=== PATIENT | female | born 1945 | race Caucasian/White ===

== ENCOUNTER 2025-08-03 14:00 | Outpatient (AMB) | payer MEDICARE, MEDICAID, SELFPAY ==
--- NOTE | 2025-08-03 14:02 | MHC.OFFVIS ---
Intake Visit Reasons: Sonner appt/ recent sz Accompanied by: Family/Other Allergies lisinopril Allergy (Unknown, Verified 08/03/25 14:09) Unknown Medication List - Last Reconciled 08/03/25 by Fernanda Ortez CNP amantadine HCl 100 mg PO BID amlodipine 2.5 mg PO DAILY aspirin 81 mg PO DAILY atorvastatin 40 mg PO DAILY blood sugar diagnostic (FreeStyle Lite Strips) As directed diazepam 10 mg MD lancets (FreeStyle Lancets) As directed metformin ER 500 mg PO DAILY metoprolol tartrate 75 mg PO BID polyethylene glycol 3350 (ClearLax) 17 grams PO DAILY PRN trazodone 25 mg PO BEDTIME HPI Comments Details: About 3 weeks ago, she had an episode of shaking and moving in arms that lasted over 5 minutes. She was alert and responsive during the episode. No tongue bite or incontinence. She was not more tired or confused afterward. She went back to her usual self immediately after the episode ended. EMS was called, but she did not go to hospital. She saw her PCP who ordered MRI which was scheduled for August and labs which she has not had done yet. No further episodes. Some days she was more alert than others. Occasionally recognizes family, but not always, and?does not relate names to people. Not expressing needs and not talking much, will say 2-3 words.?She needs total care. She requires feeding and some foods need to be pureed,?no choking. Appetite has decreased some. Sleep was okay. Mood and behavior was okay. Blood pressure controlled.?Not walking since COVID in 2019. Doing ROM exercises 2x/day.? She had a stroke with hemiparesis in 2009 [place] and made good recovery. She had mild dementia till October 2019 when she had this stroke or cerebral hemorrhage for which she was hospitalized at [facility]. She lost her speech and had right hemiplegia. 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 She had made significant recovery in her right hemiparalysis and was able to walk with a walker and supervision. She was able to follow a few simple commands and occasionally express herself with single words and sometimes short sentences. Most of the time she is lethargic and apathetic. She's not had any seizures. She is not incontinent of her bladder or bowel. Her blood pressure has been under control. Her sugar had gone up and A1c is high. She says single words occasionally. Physical Exam Const Other: General Appearance:? normal, in no acute distress. Heart:? S1, S2 normal, no murmurs. Lungs:? clear anteriorly and posteriorly. Musculoskeletal:? normal. Extremities:? no edema. Psych:? alert. Neuro Other: Abnormal Neurological Findings:?In wheelchair, unable to walk. Not verbalizing and does not follow commands. Eyes are open. She has a visual field deficit especially seems to have some neglect on the right. She can move both upper extremities with some weakness in the right upper extremity. Right lower extremity seems a little bit weaker. There is no increase in tone or significant hyperreflexia.? Mental Status: Unable, flat affect. Cranial Nerves: Pupils are equal, round, and reactive to light. External ocular muscles are intact. Visual bolton are full, no ptosis. Face is symmetrical, no facial weakness or droop. Facial sensations are normal. Tongue protrudes in midline. Palate elevates symmetrically. Shoulder shrugging is normal Motor Examination: As above. Sensory Exam: Normal light touch, temperature, pinprick, vibration, and joint-position sensations. Rhomberg sign is absent. Coordination: Unable. Gait Exam: In wheelchair, Cerebellar Signs: Unable. Extrapyramidal System: No tremor, rigidity with normal facial expressions. Speech: Does not verbalize. MMSE Level of Consciousness: Alert. Orientation: Unable. Registration: Unable. Attention: Unable. Recall: Unable. Language: No spontaneous speech Total Score: Unable. 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 They were asked to have lab and MRI results sent to office. (3) Cerebral hemorrhage: Code(s): I61.9 - Nontraumatic intracerebral hemorrhage, unspecified Category: Medical (4) Multi-infarct dementia: Code(s): F01.50 - Vascular dementia, unspecified severity, without behavioral disturbance, psychotic disturbance, mood disturbance, and anxiety Category: Medical Qualifiers: Dementia severity: unspecified severity Dementia behavioral or psychological symptom: unspecified whether behavioral, psychotic, or mood disturbance or anxiety Qualified Code(s): F01.50 - Vascular dementia, unspecified severity, without behavioral disturbance, psychotic disturbance, mood disturbance, and anxiety (5) Aphasia: Code(s): R47.01 - Aphasia Category: Medical Plan . Orders: Orders EEG electroencephalogram Today F02.80 - Dementia in other diseases classified elsewhere, unspecified severity, without behavioral disturbance, psychotic disturbance, mood disturbance, and anxiety, G30.9 - Alzheimer's disease, unspecified, G40.409 - Other generalized epilepsy and epileptic syndromes, not intractable, without status epilepticus Coding Level of Care Code [facility] Pt Level 4 (05124) Diagnoses Alzheimer disease G30.9; F02.80 Myoclonic seizure G40.409 Cerebral hemorrhage I61.9 Multi-infarct dementia, unspecified dementia severity, unspecified whether behavioral, psychotic, or mood disturbance or anxiety F01.50 Dementia severity: unspecified severity Dementia behavioral or psychological symptom: unspecified whether behavioral, psychotic, or mood disturbance or anxiety Aphasia R47.01
--- OUTSIDE RECORDS SUMMARY | 2025-08-03 16:41 | XMS_ITS | Clinical Summary ---
[facility] Address [address] [place] [address] Care Team Providers Care Director Of Managed Care Name Role Phone JeanСветлана NENITA Primary Care Provider [phone] Surgical History Surgery Date Site/Laterality Comments SECTION PROCEDURE: [place] DELIVERY ONLY HYSTERECTOMY PROCEDURE: HISTORICAL HYSTERECTOMY Medical History Medical History Date Comments Cerebrovascular disease, unspecified DX:Cerebrovascular disease, unspecified; COMMENT: cva X2 Generalized osteoarthrosis, unspecified site DX:Generalized osteoarthrosi s, unspecified site CKD (chronic kidney disease) stage 3, GFR 30-59 ml/min ([facility] V24, [facility] V28) 07/09/2018 DX:CKD (chronic kidney disea se) stage 3, GFR 30-59 ml/min ([facility]); COMMENT: Stage III DM (diabetes mellitus), type 2 with renal complications ([facility] V24, [facility] V28) 10/27/2020 DX:DM (diabetes mellitus), t ype 2 with renal complications ([facility]) Atrial fibrillation ([facility] V24, [facility] V28) 03/02/2021 DX:Atrial fibrillation (HCC) Osteoporosis 03/02/2021 DX:Osteoporosis Family History Medical History Relation Name Comments Hypertension Brother Other: Other Daughter high cholestero l/ heart palpations Coronary artery disease Mother Diabetes Mother Hypertension Mother Other: pancreatic cancer Other Blindness Sister x5 3 Dementia Sister x5 3 Diabetes Sister x5 3 x2 Hypertension Sister x5 3 x2 Breast cancer Neg Hx Relation Name Status Comments Brother Daughter Alive Father Mother Other Sister x5 3 Alive Son Alive Social History Tobacco Use Types Packs/Day Years Used Date Smoking Tobacco: Never Smokeless Tobacco: Never Alcohol Use Standard Drinks/Week Comments Never 0 (1 standard drink = 0.6 oz pur e alcohol) Comments Unknown Sex and Gender Information Value Date Recorded Sex Assigned at Not on file Legal Sex Female 1:57 PM EST Gender Identity Not on file Sexual Orientation Not on file Obstetrics History Last Filed Vital Signs Vital Sign Reading Time Taken Comments Blood Pressure 124/82 10/09/2022 2:04 PM EST A Pulse 68 05/08/2022 9:50 AM EDT Temperature - - Respiratory Rate - - Oxygen Saturation - - Inhaled Oxygen Concentration - - Weight 76.2 kg (168 lb) 06/26/2023 1:05 PM EDT w heelchair Height 160 cm (5' 3 ) 11/15/2022 12:52 PM EST Body Mass Index 29.76 11/15/2022 12:52 PM EST Plan of Treatment Health Maintenance Due Date Last Done Comments Diabetes: Annual GFR (Glomerular Filtration Rate) 1944 Diabetes: Annual Foot Exam 1954 Diabetes: Annual Retina Eye Exam 1954 Zoster Vaccines (1 of 2) 1994 RSV Immunization Adult Patients (1 - 1-dose 75+ series) 2019 Cholesterol Screening (Lipid Panel) 10/24/2022 Colorectal Cancer Screening: Stool Based Tests (FOBT/FIT) 10/24/2022 Falls Risk Assessment 10/24/2022 Osteoporosis Screening (Bone Density Screening) 10/24/2022 Social Influencers of Health Screening 10/24/2022 Diabetes: Annual Urine Albumin-Creatinine Ratio (uACR) 11/06/2022 Diabetes: Blood Sugar Contro l Test (HGBA1C) 11/06/2022 Depression Screening 11/25/2024 COVID-19 Vaccine ( - 2023-2 5 season) 2025 Influenza Vaccine (#1) 2025 9, 09/27/2016, 11/01/2014 DTaP,Tdap,and Td Vaccines (2 - Td or Tdap) 08/03/2029 08/03/2019 Pneumococcal Vaccine: 50+ Years Completed 01/25/2017, 07/18/2012 HIB Vaccines Aged Out No longer eligi ble based on patient's age to complete this topic HPV Vaccines Aged Out No longer eligi ble based on patient's age to complete this topic Hepatitis A Vaccines Aged Out No long er eligible based on patient's age to complete this topic Hepatitis B Vaccines Aged Out No long er eligible based on patient's age to complete this topic IPV Vaccines Aged Out No longer eligi ble based on patient's age to complete this topic MMR Vaccines Aged Out No longer eligi ble based on patient's age to complete this topic Meningococcal ACWY Vaccine Aged Out N o longer eligible based on patient's age to complete this topic Meningococcal B Vaccine Aged Out No l onger eligible based on patient's age to complete this topic RSV Immunization Patients Under 20 months Aged Out No longer eligible b ased on patient's age to complete this topic Varicella Vaccines Aged Out No longer eligible based on patient's age to complete this topic Advance Directives Documents on File 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
== END 2025-08-03 14:25 | disposition home or self-care (01) ==
LOC: HO.HSM 14:01
PROVIDERS: PCP Internal Medicine; Visit Provider Registered Nurse
DX: G30.9 Alzheimer's disease, unspecified (principal); F02.80 Dementia in other diseases classified elsewhere, unspecified severity, without behavioral disturbance, psychotic disturbance, mood disturbance, and anxiety; G40.409 Other generalized epilepsy and epileptic syndromes, not intractable, without status epilepticus; I61.9 Nontraumatic intracerebral hemorrhage, unspecified; F01.50 Vascular dementia, unspecified severity, without behavioral disturbance, psychotic disturbance, mood disturbance, and anxiety; R47.01 Aphasia
CPT/HCPCS: 99214

== ENCOUNTER → 2025-08-03 14:00 | Outpatient (BNVA) | payer MEDICARE, MEDICAID, SELFPAY | PROVIDERS: PCP Internal Medicine; Visit Provider Registered Nurse | DX: G40.409 Other generalized epilepsy and epileptic syndromes, not intractable, without status epilepticus (principal); G30.9 Alzheimer's disease, unspecified; F02.80 Dementia in other diseases classified elsewhere, unspecified severity, without behavioral disturbance, psychotic disturbance, mood disturbance, and anxiety; I61.9 Nontraumatic intracerebral hemorrhage, unspecified; F01.50 Vascular dementia, unspecified severity, without behavioral disturbance, psychotic disturbance, mood disturbance, and anxiety; R47.01 Aphasia; Z79.82 Long term (current) use of aspirin; I10 Essential (primary) hypertension | CPT/HCPCS: 99212 ==

== ENCOUNTER 2025-08-12 12:45 | Outpatient (REF) | payer MEDICARE, MEDICAID, SELFPAY ==
--- NOTE | 2025-08-12 14:10 | EEG_ITS ---
Roomed Performed:?402 Reason: epilepsy History: Family reports patient having 2 strokes. First was in 2009 and patient recovery well. Second stroke was in 2019, she lost her speech and had right hemiplegia. Recently patient is noted to have upper body jerking and one episode of shaking and moving in arms that lasted over 5 minutes. Medication: amantadine, amlodipine, aspirin, atorvastatin, diazepam, metformin, metoprolol, trazodone Technical description Photic stimulation: omitted Hyperventilation:?omitted Behavioral state: Patient was noted to have jerking in upper body predominantly on right side that correlated to discharges State of Consciousness: awake and drowsy Skull defect: none Sedation: none Handedness: left Duration of study:?31 min?21 sec Description: The waking background activity consists of a moderate voltage diffuse 4-5 hertz theta with frequent bifrontal 2-3 hertz moderate to high voltage delta frequencies. An abundance of muscle artifacts are seen throughout. Occasional instances of generalized isolated spikes are seen. Photic stimulation and hyperventilation were omitted. During sleep there is diffuse background slowing with decrease in the spiky discharges. Impression: This is an abnormal EEG due to moderately severe diffuse background slowing and occasional isolated general lysed spikes that correlate with diffuse cerebral dysfunction and potential for seizures. Clinical correlation is suggested MTDD
--- OUTSIDE RECORDS SUMMARY | 2025-08-12 14:49 | XMS_ITS | Clinical Summary ---
[facility] Organization [facility] Address [address] [place] [address] Care Team Providers Care Bench Technician Name Role Phone JeanСветлана NENITA Primary Care Provider [phone] Surgical History Surgery Date Site/Laterality Comments SECTION PROCEDURE: [place] DELIVERY ONLY HYSTERECTOMY PROCEDURE: HISTORICAL HYSTERECTOMY Medical History Medical History Date Comments Cerebrovascular disease, unspecified DX:Cerebrovascular disease, unspecified; COMMENT: cva X2 Generalized osteoarthrosis, unspecified site DX:Generalized osteoarthrosi s, unspecified site CKD (chronic kidney disease) stage 3, GFR 30-59 ml/min ([facility] V24, [facility] V28) 07/09/2018 DX:CKD (chronic kidney disea se) stage 3, GFR 30-59 ml/min ([facility]); COMMENT: Stage III DM (diabetes mellitus), type 2 with renal complications ([facility] V24, [facility] V28) 10/27/2020 DX:DM (diabetes mellitus), t ype 2 with renal complications ([facility]) Atrial fibrillation ([facility] V24, [facility] V28) 03/02/2021 DX:Atrial fibrillation (HCC) Osteoporosis 03/02/2021 [...] Documents on File Type Date 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
== END 2025-08-12 12:46 | disposition home or self-care (01) ==
LOC: HO.NEURO 12:45
PROVIDERS: Visit Provider Psychiatry & Neurology Neurology
DX: G40.409 Other generalized epilepsy and epileptic syndromes, not intractable, without status epilepticus (principal); G30.9 Alzheimer's disease, unspecified; F02.80 Dementia in other diseases classified elsewhere, unspecified severity, without behavioral disturbance, psychotic disturbance, mood disturbance, and anxiety; R94.01 Abnormal electroencephalogram [EEG]
CPT/HCPCS: 95816

== ENCOUNTER → 2025-08-12 14:10 | Outpatient (BNV) | payer MEDICARE, MEDICAID, SELFPAY | PROVIDERS: Visit Provider Psychiatry & Neurology Neurology | DX: G93.89 Other specified disorders of brain (principal) | CPT/HCPCS: 95816 ==

== ENCOUNTER 2025-11-03 13:52 | Outpatient (AMB) | payer MEDICARE, MEDICAID, SELFPAY ==
--- NOTE | 2025-11-03 14:08 | MHC.OFFVIS ---
Intake Visit Reasons: 3m Sz ad Accompanied by: Family/Other Allergies lisinopril Allergy (Unknown, Verified 11/03/25 16:21) Unknown Medication List - Last Reconciled 11/03/25 by Fernanda Ortez CNP amantadine HCl 100 mg PO BID amlodipine 2.5 mg PO DAILY aspirin 81 mg PO DAILY atorvastatin 40 mg PO DAILY blood sugar diagnostic (FreeStyle Lite Strips) As directed diazepam 10 mg [place] lancets (FreeStyle Lancets) As directed metformin ER 500 mg PO DAILY metoprolol tartrate 75 mg PO BID polyethylene glycol 3350 (ClearLax) 17 grams PO DAILY PRN trazodone 25 mg PO BEDTIME HPI Comments Details: She was doing okay. No further episodes of shaking. She had MRI at [facility] in 08/2025 which was apparently limited by motion, but otherwise okay. Memory was about the same, more alert some days than others. Occasionally recognizes family, but not always, and?does not relate names to people. Not expressing needs and not talking much, will say 2-3 words.?She needs total care. She requires feeding and some foods need to be pureed,?no choking. Appetite has decreased some. Sleep was okay. Mood and behavior was okay. Blood pressure controlled.?Not walking since COVID in 2019. Doing ROM exercises 2x/day.? In 06/2025, she had an episode of shaking and moving in arms that lasted over 5 minutes. She was alert and responsive during the episode. No tongue bite or incontinence. She was not more tired or confused afterward. She went back to her usual self immediately after the episode ended. EMS was called, but she did not go to hospital. She saw her PCP who ordered MRI and labs. She had a stroke with hemiparesis in 2009 [place] and made good recovery. She had mild dementia till October 2019 when she had this stroke or cerebral hemorrhage for which she was hospitalized at [facility]. She lost her speech and had right hemiplegia. 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 She had made significant recovery in her right hemiparalysis and was able to walk with a walker and supervision. She was able to follow a few simple commands and occasionally express herself with single words and sometimes short sentences. Most of the time she is lethargic and apathetic. She's not had any seizures. She is not incontinent of her bladder or bowel. Her blood pressure has been under control. Her sugar had gone up and A1c is high. She says single words occasionally. Review of Systems Const Denies chills, Denies daytime sleepiness, Denies difficulty sleeping, Denies fatigue, Denies fever(s), Denies frequent falls, Denies headache(s), Denies increased appetite, Denies poor appetite, Denies snoring, Denies weakness, Denies weight gain and Denies weight loss Eyes Denies loss of vision ENT Denies vertigo, Denies dizziness, Denies headache(s) and Denies neck pain Card Denies chest pain at rest, Denies chest pain with activity, Denies syncope, Denies leg edema, Denies palpitations, Denies dyspnea and Denies dyspnea on exertion Resp Denies cough, Denies dyspnea, Denies dyspnea on exertion and Denies snoring GI Denies abdominal pain, Denies constipation, Denies heartburn, Denies diarrhea and Denies nausea Denies urinary frequency, Denies urinary incontinence and Denies urinary urgency Musc Denies abnormal gait, Denies back pain, Denies myalgias, Denies arthralgias, Denies neck pain, Denies numbness and Denies tingling Neuro Denies abnormal gait, Denies vertigo, Denies dizziness, Denies syncope, Denies frequent falls, Denies headache(s), Denies lack of coordination, Denies loss of vision, Reports memory loss, Denies numbness, Denies Other visual disturbances, Denies restless legs, Denies seizure-like activity, Denies tingling, Denies paresthesias, Denies tremor(s) and Denies weakness Psych Denies anxiety, Denies depression, Denies auditory hallucinations, Reports memory loss and Denies visual hallucinations Endo Denies fatigue and Denies palpitations Physical Exam Const Other: General Appearance:? normal, in no acute distress. Heart:? S1, S2 normal, no murmurs. Lungs:? clear anteriorly and posteriorly. Musculoskeletal:? normal. Extremities:? no edema. Psych:? alert. Neuro Other: Abnormal Neurological Findings:?In wheelchair, unable to walk. Not verbalizing and does not follow commands. Eyes are open. She has a visual field deficit especially seems to have some neglect on the right. She can move both upper extremities with some weakness in the right upper extremity. Right lower extremity seems a little bit weaker. There is no increase in tone or significant hyperreflexia.? Mental Status: Unable, flat affect. Cranial Nerves: Pupils are equal, round, and reactive to light. External ocular muscles are intact. Visual bolton are full, no ptosis. Face is symmetrical, no facial weakness or droop. Facial sensations are normal. Tongue protrudes in midline. Palate elevates symmetrically. Shoulder shrugging is normal Motor Examination: As above. Sensory Exam: Normal light touch, temperature, pinprick, vibration, and joint-position sensations. Rhomberg sign is absent. Coordination: Unable. Gait Exam: In wheelchair, Cerebellar Signs: Unable. Extrapyramidal System: No tremor, rigidity with normal facial expressions. Speech: Does not verbalize. MMSE Level of Consciousness: Alert. Orientation: Unable. Registration: Unable. Attention: Unable. Recall: Unable. Language: No spontaneous speech Total Score: Unable. Results Reviewed Results Reviewed: [address] [address] Electroencephalogram Report Signed Patient: Talia Byrd MR#: [id number] : 1945 Acct:[id number] Age/Sex: 80 / F ADM Date: 08/12/25 Loc: HO.NEURO Attending Dr: Edd Reynolds MD Ordering Physician: Fernanda Ortez CNP Date of Service: 08/12/25 Procedure(s): EEG electroencephalogram Accession Number(s): [id number] cc: ~ Reason for Exam: G40.409 - Other generalized epilepsy and epileptic syndromes, not intrac... Roomed Performed:?402 Reason: epilepsy History: Family reports patient having 2 strokes. First was in 2009 and patient recovery well. Second stroke was in 2019, she lost her speech and had right hemiplegia. Recently patient is noted to have upper body jerking and one episode of shaking and moving in arms that lasted over 5 minutes. Medication: amantadine, amlodipine, aspirin, atorvastatin, diazepam, metformin, metoprolol, trazodone Technical description Photic stimulation: omitted Hyperventilation:?omitted Behavioral state: Patient was noted to have jerking in upper body predominantly on right side that correlated to discharges State of Consciousness: awake and drowsy Skull defect: none Sedation: none Handedness: left Duration of study:?31 min?21 sec Description: The waking background activity consists of a moderate voltage diffuse 4-5 hertz theta with frequent bifrontal 2-3 hertz moderate to high voltage delta frequencies. An abundance of muscle artifacts are seen throughout. Occasional instances of generalized isolated spikes are seen. Photic stimulation and hyperventilation were omitted. During sleep there is diffuse background slowing with decrease in the spiky discharges. Impression: This is an abnormal EEG due to moderately severe diffuse background slowing and occasional isolated general lysed spikes that correlate with diffuse cerebral dysfunction and potential for seizures. Clinical correlation is suggested Dictated By: Candace Vergara MD Signed By: <Electronically signed by Candace Vergara MD> 08/18/25 0935 Assessment & Plan Assessment & Plan (1) Alzheimer disease: Code(s): G30.9 - Alzheimer's disease, unspecified; F02.80 - Dementia in other diseases classified elsewhere, unspecified severity, without behavioral disturbance, psychotic disturbance, mood disturbance, and anxiety Category: Medical Plan: EEG results reviewed with family. Will request copy of MRI results from [facility]. Follow up was already scheduled for 04/2026, follow up sooner as needed. (2) Myoclonic seizure: Code(s): G40.409 - Other generalized epilepsy and epileptic syndromes, not intractable, without status epilepticus Category: Medical (3) Cerebral hemorrhage: Code(s): I61.9 - Nontraumatic intracerebral hemorrhage, unspecified Category: Medical (4) Multi-infarct dementia: Code(s): F01.50 - Vascular dementia, unspecified severity, without behavioral disturbance, psychotic disturbance, mood disturbance, and anxiety Category: Medical Qualifiers: Dementia behavioral or psychological symptom: unspecified whether behavioral, psychotic, or mood disturbance or anxiety Dementia severity: unspecified severity Qualified Code(s): F01.50 - Vascular dementia, unspecified severity, without behavioral disturbance, psychotic disturbance, mood disturbance, and anxiety (5) Aphasia: Code(s): R47.01 - Aphasia Category: Medical Plan . Coding Level of Care Code Est Pt Level 3 (10531) Diagnoses Alzheimer disease G30.9; F02.80 Myoclonic seizure G40.409 Cerebral hemorrhage I61.9 Multi-infarct dementia, unspecified dementia severity, unspecified whether behavioral, psychotic, or mood disturbance or anxiety F01.50 Dementia behavioral or psychological symptom: unspecified whether behavioral, psychotic, or mood disturbance or anxiety Dementia severity: unspecified severity Aphasia R47.01
--- OUTSIDE RECORDS SUMMARY | 2025-11-03 21:33 | XMS_ITS | Encounter Summary ---
Author Organization [facility] Prior to 09/25/2024 Address [address] [place] [address] Care Team Providers Care Reeler Operator Name Role Phone Harry Penaanna ESTEBAN Primary Care Provider Abdirizak Boone DPM Unavailable [phone] Encounter Details Date Type Department Care Team Description 12/08/2020 Orders Only Medical Records [address] [place] [id number] Fannie Rockwell MD Social History Tobacco Use Types Packs/Day Years Used Date Smoking Tobacco: Never Smokeless Tobacco: Never Alcohol Use Standard Drinks/Week Comments Not Asked 0 (1 standard drink = 0.6 oz pur e alcohol) Alcohol Habits Answer Date Recorded How often do you have a drink containing alcohol ? Never 01/24/2023 How many drinks containing a lcohol do you have on a typical day when you are drinking? Not asked How often do you have six or more drinks on one occasion? Never 01/24/2023 Social Isolation Answer Date Recorded In a typical week, how many times do you talk on the phone with family, friends, or neighbors? Never 01/24/2023 How often do you get together with friends or re latives? Never 01/24/2023 How often do you attend congregational or catholic serv ices? Not asked Do you belong to any clubs o r organizations such as congregational groups, unions, fraternal or athletic groups, or school groups? Yes 01/24/2023 How often do you attend meet ings of the clubs or organizations you belong to? Never 01/24/2023 Are you now , , , , never or living with a partner? 01/24/2023 Physical Activity Answer Date Recorded On average, how many days pe r week do you engage in moderate to strenuous exercise (like walking fast, running, jogging, dancing, swimming, biking, or other activities that cause a light or heavy sweat)? 0 days 01/24/2023 On average, how many minutes do you engage in exercise at this level? 0 min 01/24/2023 Stress Answer Date Recorded Do you feel stress - tense, restless, nervous, or anxious, or unable to sleep at night because your mind is troubled all the time - these days? Only a little 01/24/2023 Financial Resource Strain Answer Date R ecorded How hard is it for you to pa y for the very basics like food, housing, medical care, and heating? Not hard at all 01/24/2023 Intimate Partner Violence Answer Date R ecorded Within the last year, have y ou been afraid of your partner or ex-partner? No 01/24/2023 Within the last year, have y ou been humiliated or emotionally abused in other ways by your partner or ex-partner? No Within the last year, have y ou been kicked, hit, slapped, or otherwise physically hurt by your partner or ex-partner? No 01/24/2023 Within the last year, have y ou been raped or forced to have any kind of sexual activity by your partner or ex-partner? No 01/24/2023 Food Insecurity Answer Date Recorded Within the past 12 months, y ou worried that your food would run out before you got money to buy more. Never true 01/24/2023 Within the past 12 months, t he food you bought just didn't last and you didn't have money to get more. Never true 01/24/2023 Transportation Needs Answer Date Record ed In the past 12 months, has l ack of transportation kept you from medical appointments or from getting medications? No 12/2022 In the past 12 months, has l ack of transportation kept you from meetings, work, or getting things needed for daily living? No 01/24/2023 Housing Stability Answer Date Recorded In the last 12 months, was t here a time when you were not able to pay the mortgage or rent on time? No 01/24/2023 In the last 12 months, how many places have you lived? 1 01/24/2023 In the last 12 months, was t here a time when you did not have a steady place to sleep or slept in a retirement (including now)? No 01/24/2023 Sex Assigned at Date Recorded Not on file documented as of this encounter Plan of Treatment Not on file documented as of this encounter Procedures Procedure Name Priority Date/Time Associated Diagnosis Comments OUTSIDE LAB Routine 10/28/2020 documented in this encounter Results * OUTSIDE LAB (10/28/2020) Fannie Rockwell MD LAB documented in this encounter Visit Diagnoses Not on filedocumented in this encounter Care Teams Reeler Operator Relationship Specialty Start Date End Date Светлана Pena APRN PCP - General Internal Medicine 07/01/20 07/03/23 Abdirizak Zepeda DPM [address] [place] [address] Podiatry 01/24/23 documented as of this encounter
--- OUTSIDE RECORDS SUMMARY | 2025-11-03 21:33 | XMS_ITS | Encounter Summary ---
Author Organization [facility] Prior to 09/25/2024 Address [address] [place] [address] Care Team Providers Care Conduit Reamer Operator Name Role Phone Светлана Pena APRN Primary Care Provider Abdirizak Boone DPM Unavailable [phone] Reason for Visit * Reason Onset Date Comments refill request 10/17/2020 Encounter Details Date Type Department Care Team Description 10/17/2020 Refill Adult Medicine [address] [address] Светлана Pena APRN refill request Social History Tobacco Use Types Packs/Day Years [...] Never 01/24/2023 How often do you attend yarsanism or church serv ices? Not asked Do you belong to any clubs o r organizations such as yarsanism groups, unions, fraternal or athletic groups, or [...] place to sleep or slept in a skilled nursing (including now)? No 01/24/2023 Sex Assigned at Date Recorded Not on file COVID-19 Exposure Response Date Recorded In the last month, have you been in contact with someone who was confirmed or suspected to have Coronavirus / COVID-19? No / Unsure 10/06/2020 1:01 PM EST documented as of this encounter Miscellaneous Notes * Telephone Encounter - Radha Rueda M.A. - 10/17/2020 1:37 PM EST Date of last office visit was 09/13/20. Pended appt for 10/27/20 Lab Results Component Value Date HGBA1C 5.5 09/13/2020 CHOL 200 09/13/2020 LDL 101 09/13/2020 HDL 50 09/13/2020 TRIG 246 09/13/2020 GLU 87 09/13/2020 CREAT 1.00 09/13/2020 * Telephone Encounter - Olga Cabral - 10/17/2020 9:13 AM EST Please re fax to pharmacy * Telephone Encounter - Olga Cabral - 10/17/2020 9:12 AM EST Patient would like script to be: E-PRESCRIBED/FAXED TO PHARMACY ?? WHEN WAS THE PATIENT'S LAST APPOINTMENT IN ADULT MEDICINE? 09-13-20 ?? WHEN WAS THE LAST TIME THE PATIENT SAW THEIR PCP? Same as above ?? Does patient have an upcoming appointment? Yes 10-27-20 ?? (THE MEDICATION REQUESTED IS ON THE MED LIST ABOVE) One or some of the medications requested were on the HISTORICAL MED list ?? Did you check the Pharmacy information above?: YES ?? Patient wants: 30 -day supply ?? Is this a mail order prescription request ? NO ?? If the refill is from a FAXED refill request what is the RX # listed on the fax? N/A ?? Patients current insurance carrier is: [place] / Plan: MEDICARE-[employer] / Product Type: MEDICARE [id number] ?? documented in this encounter Plan of Treatment Not on file documented as of this encounter Visit Diagnoses Not on filedocumented in this encounter Care Teams Conduit Reamer Operator Relationship Specialty Start Date End Date Светлана Pena APRN PCP - General Internal Medicine 07/01/20 07/03/23 Abdirizak Zepeda DPM [address] [place] [address] Podiatry 01/24/23 documented as of this encounter
--- OUTSIDE RECORDS SUMMARY | 2025-11-03 21:33 | XMS_ITS | Encounter Summary ---
Author Organization [facility] Prior to 09/25/2024 Address [address] [place] [address] Care Team Providers Care Rn X Ray Name Role Phone Светлана Pena APRN Primary Care Provider Abdirizak Boone DPM Unavailable [phone] Reason for Visit * Reason Onset Date Comments Faxed Order 11/03/2020 [facility] Encounter Details Date Type Department Care Team Description 11/03/2020 Telephone Adult Medicine [address] [address] Светлана Pena APRN Faxed Order ([facility] ) Social History Tobacco Use Types Packs/Day Years [...] Never 01/24/2023 How often do you attend anglican or islam serv ices? Not asked Do you belong to any clubs o r organizations such as anglican groups, unions, fraternal or athletic groups, or [...] medical appointments or from getting medications? No 03/0 12/2022 In the past 12 months, has [...] place to sleep or slept in a assisted (including now)? No 01/24/2023 Sex Assigned at Date Recorded Not on file COVID-19 Exposure Response Date Recorded In the last month, have you been in contact with someone who was confirmed or suspected to have Coronavirus / COVID-19? No / Unsure 10/06/2020 1:01 PM EST documented as of this encounter Miscellaneous Notes * Telephone Encounter - Sandra Durham - 11/03/2020 5:30 PM EST Placed in doctors bin: [facility] Please Review, Sign & Fax when completed. documented in this encounter Plan of Treatment Not on file documented as of this encounter Visit Diagnoses Not on filedocumented in this encounter Care Teams Rn X Ray Relationship Specialty Start Date End Date Светлана Pena APRN PCP - General Internal Medicine 07/01/20 07/03/23 Abdirizak Zepeda DPM [address] [place] [address] Podiatry 01/24/23 documented as of this encounter
--- OUTSIDE RECORDS SUMMARY | 2025-11-03 21:33 | XMS_ITS | Encounter Summary ---
Author Organization [facility] Prior to 09/25/2024 Address [address] [place] [address] Care Team Providers Care Clip Bolter And Wrapper Name Role Phone Jean Светлана ESTEBAN Primary Care Provider Abdirizak Boone DPM Unavailable Encounter Details Date Type Department Care Team Description 10/19/2020 Coach Cleaner Report Medical Records [address] [place] [address] Raeann Vergara MD Social History Tobacco Use Types Packs/Day [...] Never 01/24/2023 How often do you attend tenriism or advent serv ices? Not asked Do you belong to any clubs o r organizations such as tenriism groups, unions, fraternal or athletic groups, or [...] place to sleep or slept in a senior living (including now)? No 01/24/2023 Sex Assigned at Date Recorded Not on file COVID-19 Exposure Response Date Recorded In the last month, have you been in contact with someone who was confirmed or suspected to have Coronavirus / COVID-19? No / Unsure 10/06/2020 1:01 PM EST documented as of this encounter Plan of Treatment Not on file documented as of this encounter Visit Diagnoses Not on filedocumented in this encounter Care Teams Clip Bolter And Wrapper Relationship Specialty Start Date End Date Светлана Pena APRN PCP - General Internal Medicine 07/01/20 07/03/23 Abdirizak Zepeda DPM [address] [place] [address] Podiatry 01/24/23 documented as of this encounter
--- OUTSIDE RECORDS SUMMARY | 2025-11-03 21:33 | XMS_ITS | Encounter Summary ---
Author Organization [facility] [facility] Prior to 09/25/2024 Address [address] [place] [address] Care Team Providers Care Coupling Machine Operator Name Role Phone Akira Miles MD Primary Care Provider Светлана Sanford APRN Primary Care Provider Unav ailable Abdirizak Zepeda DPM Unavailable [phone] Reason for Visit * Reason Onset Date Comments Faxed Order 04/11/2017 Encounter Details Date Type Department Care Team Description 04/11/2017 Telephone Adult Medicine [facility] [address] [place] [address] Akira Miles MD Faxed Order Social History Tobacco Use Types Packs/Day Years [...] Never 01/24/2023 How often do you attend mandaen or yarsanism serv ices? Not asked Do you belong to any clubs o r organizations such as mandaen groups, unions, fraternal or athletic groups, or [...] to sleep or slept in a senior care (including now)? No 01/24/2023 Sex Assigned at Date Recorded Not on file documented as of this encounter Miscellaneous Notes * Telephone Encounter - Ginny Lemus - 04/11/2017 9:19 AM EDT [facility] sent orders to be reviewed, signed and faxed back to [phone] Miles's bin on A-side documented in this encounter Plan of Treatment Not on file documented as of this encounter Visit Diagnoses Not on filedocumented in this encounter Care Teams Coupling Machine Operator Relationship Specialty Start Date End Date Akira Miles MD PCP - General Internal Medicine 02/29/12 06/30/20 Светлана Pena APRN PCP - General Internal Medicine 07/01/20 07/03/23 Abdirizak Zepeda DPM [address] [place] [address] Podiatry 01/24/23 documented as of this encounter
--- OUTSIDE RECORDS SUMMARY | 2025-11-03 21:33 | XMS_ITS | Encounter Summary ---
Author Organization [employer] [facility] Prior to 09/25/2024 Address [address] [place] [address] Care Team Providers Care Valver Name Role Phone Светлана Pena APRN Primary Care Provider Abdirizak Boone DPM Unavailable [phone] Encounter Details Date Type Department Care Team Description 12/26/2020 Board Certified Arts Therapist Report Medical Records [address] [place] [address] Nikita Kee [address] [place] [address] Social History Tobacco Use Types Packs/Day Years [...] Never 01/24/2023 How often do you attend episcopal or islam serv ices? Not asked Do you belong to any clubs o r organizations such as episcopal groups, unions, fraternal or athletic groups, or [...] place to sleep or slept in a chcf (including now)? No 01/24/2023 Sex Assigned at Date Recorded Not on file documented as of this encounter Plan of Treatment Not on file documented as of this encounter Visit Diagnoses Not on filedocumented in this encounter Care Teams Valver Relationship Specialty Start Date End Date Светлана Pena APRN PCP - General Internal Medicine 07/01/20 07/03/23 Abdirizak Zepeda DPM [address] [place] [id number] Podiatry 01/24/23 documented as of this encounter
--- OUTSIDE RECORDS SUMMARY | 2025-11-03 21:33 | XMS_ITS | Encounter Summary ---
Author Organization [email or web address] [facility] Prior to 09/25/2024 Address [address] [place] [address] Care Team Providers Care Warehouse Attendant Name Role Phone Светлана Pena APRN Primary Care Provider Abdirizak Boone DPM Unavailable [phone] Reason for Visit * Reason Onset Date Comments Faxed Order 12/30/2020 [facility] ( [id number]) Encounter Details Date Type Department Care Team Description 12/30/2020 Telephone Adult Medicine [facility] [address] [place] [address] Светлана Pena APRN Faxed Order ([facility] ( [id number]) ) Social History Tobacco Use Types Packs/Day [...] Never 01/24/2023 How often do you attend uatsdin or evangelical serv ices? Not asked Do you belong to any clubs o r organizations such as uatsdin groups, unions, fraternal or athletic groups, or [...] place to sleep or slept in a snf (including now)? No 01/24/2023 Sex Assigned at Date Recorded Not on file documented as of this encounter Miscellaneous Notes * Telephone Encounter - Elizabeth Lemus - 12/30/2020 2:23 PM EST Orders from [employer] sign, date return To Светлана dodge documented in this encounter Plan of Treatment Not on file documented as of this encounter Visit Diagnoses Not on filedocumented in this encounter Care Teams Warehouse Attendant Relationship Specialty Start Date End Date Светлана Pena APRN PCP - General Internal Medicine 07/01/20 07/03/23 Abdirizak Zepeda DPM [address] [place] [address] Podiatry 01/24/23 documented as of this encounter
--- OUTSIDE RECORDS SUMMARY | 2025-11-03 21:33 | XMS_ITS | Encounter Summary ---
Author Organization [employer] [facility] Prior to 09/25/2024 Address [address] [place] [address] Care Team Providers Care Scrap Carrier Name Role Phone Harry Penaanna ESTEBAN Primary Care Provider Abdirizak Boone DPM Unavailable [phone] Encounter Details Date Type Department Care Team Description 12/20/2020 Telephone Adult Medicine [address] [address] Geovani Beltran MD [address] [place] [address] Social History Tobacco Use Types Packs/Day Years [...] Never 01/24/2023 How often do you attend restoration or zoroastrian serv ices? Not asked Do you belong to any clubs o r organizations such as restoration groups, unions, fraternal or athletic groups, or [...] on filedocumented in this encounter Care Teams Scrap Carrier Relationship Specialty Start Date End Date Светлана Pena APRN PCP - General Internal Medicine 07/01/20 07/03/23 Abdirizak Zepeda DPM [address] [place] [address] Podiatry 01/24/23 documented as of this encounter
--- OUTSIDE RECORDS SUMMARY | 2025-11-03 21:33 | XMS_ITS | Encounter Summary ---
Author Organization [employer] [facility] Prior to 09/25/2024 Address [address] [place] [address] Care Team Providers Care Paediatric Physiotherapist Name Role Phone Akira Miles MD Primary Care Provider Светлана Sanford APRN Primary Care Provider UnaAbdirizak Lennon DPM Unavailable [phone] Encounter Details Date Type Department Care Team Description 12/18/2016 Business Doc Medical Records [address] [place] [id number] Abstract, Provider Social History Tobacco Use Types Packs/Day Years [...] How often do you attend uatsdin or church serv ices? Not asked Do [...] place to sleep or slept in a alf (including now)? No 01/24/2023 Sex Assigned at Date Recorded Not on file documented as of this encounter Plan of Treatment Not on file documented as of this encounter Visit Diagnoses Not on filedocumented in this encounter Care Teams Paediatric Physiotherapist Relationship Specialty Start Date End Date Akira Miles MD PCP - General Internal Medicine 02/29/12 06/30/20 Светлана Pena APRN PCP - General Internal Medicine 07/01/20 07/03/23 Abdirizak Zepeda DPM [address] [place] [address] Podiatry 01/24/23 documented as of this encounter
--- OUTSIDE RECORDS SUMMARY | 2025-11-03 21:33 | XMS_ITS | Encounter Summary ---
Author Organization [employer] [facility] Prior to 09/25/2024 Address [address] [place] [address] Care Team Providers Care Floor Scrubber Name Role Phone Akira Miles MD Primary Care Provider Светлана Sanford APRN Primary Care Provider Unav ailable Abdirizak Zepeda DPM Unavailable [phone] Reason for Visit * Reason Onset Date Comments Faxed Order 04/25/2018 Encounter Details Date Type Department Care Team Description 04/25/2018 Telephone Adult Medicine [facility] [address] [place] [address] Akira Miles MD Faxed Order Social History [...] Never 01/24/2023 How often do you attend orthodox or worship serv ices? Not asked Do you belong to any clubs o r organizations such as orthodox groups, unions, fraternal or athletic groups, or [...] place to sleep or slept in a detention (including now)? No 01/24/2023 Sex Assigned at Date Recorded Not on file documented as of this encounter Miscellaneous Notes * Telephone Encounter - Eunice Nguyen - 04/25/2018 9:23 AM EDT Please sign date and fax back documented in this encounter Plan of Treatment Not on file documented as of this encounter Visit Diagnoses Not on filedocumented in this encounter Care Teams Floor Scrubber Relationship Specialty Start Date End Date Akira Miles MD PCP - General Internal Medicine 02/29/12 06/30/20 Светлана Pena APRN PCP - General Internal Medicine 07/01/20 07/03/23 Abdirizak Zepeda DPM [address] [place] [address] Podiatry 01/24/23 documented as of this encounter
--- OUTSIDE RECORDS SUMMARY | 2025-11-03 21:33 | XMS_ITS | Encounter Summary ---
Author Organization [facility] [facility] Prior to 09/25/2024 Address [address] [place] [address] Care Team Providers Care Metal Ceiling Builder Name Role Phone Akira Miles MD Primary Care Provider Светлана Sanford APRN Primary Care Provider Unav Abdirizak Shelton DPM Unavailable [phone] Reason for Visit * Reason Onset Date Comments Medication 01/25/2017 Encounter Details Date Type Department Care Team Description 01/25/2017 Telephone Adult Medicine [address] [address] Akira Miles MD Medication Social History Tobacco Use Types Packs/Day Years [...] Never 01/24/2023 How often do you attend faith or sabianism serv ices? Not asked Do you belong to any clubs o r organizations such as faith groups, unions, fraternal or athletic groups, or [...] place to sleep or slept in a long term (including now)? No 01/24/2023 Sex Assigned at Date Recorded Not on file documented as of this encounter Miscellaneous Notes * Telephone Encounter - Savannah Whitlock L.P.N. - 01/25/2017 2:17 PM EST Please sign script * Telephone Encounter - Savannah Whitlock L.P.N. - 01/25/2017 2:07 PM EST Pharmacy notified and will explain to patient when she picks up med * Telephone Encounter - Melly Dumont PA-C - 01/25/2017 1:30 PM EST Proair cancelled, ventolin ordered. Qvar cancelled. * Telephone Encounter - Radha Rueda M.A. - 01/25/2017 1:21 PM EST Pro air is not covered by the pts insurance. Ventolin is covered. Rx pended to be sent to the pharmacy thank you. * Telephone Encounter - Aura Becker - 01/25/2017 12:29 PM EST Who is calling? A pharmacist: Pharmacy: [facility] Pharmacist Name: karen [facility] Name of the medication : proair,q-gregor What is the specific problem or interaction? Proair not covered by insurance, but ventolin hfa is covered can they switch, also q-gregor not covered no alternative offered If the patient is having a problem with taking the med - how long has the problem been going on? 01/25/2017 documented in this encounter Plan of Treatment Not on file documented as of this encounter Visit Diagnoses Not on filedocumented in this encounter Care Teams Metal Ceiling Builder Relationship Specialty Start Date End Date Akira Miles MD PCP - General Internal Medicine 02/29/12 06/30/20 Светлана Pena APRN PCP - General Internal Medicine 07/01/20 07/03/23 Abdirizak Zepeda DPM [address] [address] Podiatry 01/24/23 documented as of this encounter
--- OUTSIDE RECORDS SUMMARY | 2025-11-03 21:33 | XMS_ITS | Encounter Summary ---
Author Organization [employer] [facility] Prior to 09/25/2024 Address [address] [place] [address] Care Team Providers Care Outside Dealer Sales Representative Name Role Phone Harry Penaanna ESTEBAN Primary Care Provider Abdirizak Boone DPM Unavailable Reason for Visit * Reason Onset Date Comments TEST RESULTS 10/10/2022 Encounter Details Date Type Department Care Team Description 10/10/2022 Telephone Adult Medicine [facility] [address] [place] [address] Bravo Bell PA-C TEST RESULTS Social History Tobacco Use Types Packs/Day Years [...] Never 01/24/2023 How often do you attend gnosticism or tenriism serv ices? Not asked Do you belong to any clubs o r organizations such as gnosticism groups, unions, fraternal or athletic groups, or [...] Exposure Response Date Recorded In the last 10 days, have yo u been in contact with someone who was confirmed or suspected to have Coronavirus/COVID-19? No / Unsure 10/09/2022 1:30 PM EST documented as of this encounter Miscellaneous Notes * Telephone Encounter - Dayna Juarez - 10/10/2022 9:17 AM EST Number is not in service will try to call again later. * Telephone Encounter - Dayna Juarez - 10/10/2022 9:16 AM EST ----- Message from Bravo Bell PA-C sent at 10/10/2022 8:22 AM EST ----- Please call and speak with daughter advise that her mother's blood work shows great improvement in her hemoglobin A1c now at 7.2. Spot blood sugar was 132. Kidney function was improved from 5 months ago. Still slightly decreased but better. Cholesterol is under good control. documented in this encounter Plan of Treatment Not on file documented as of this encounter Visit Diagnoses Not on filedocumented in this encounter Care Teams Outside Dealer Sales Representative Relationship Specialty Start Date End Date Светлана Pena APRN PCP - General Internal Medicine 07/01/20 07/03/23 Abdirizak Zepeda DPM [address] [place] [address] Podiatry 01/24/23 documented as of this encounter
--- OUTSIDE RECORDS SUMMARY | 2025-11-03 21:34 | XMS_ITS | Encounter Summary ---
Author Organization [employer] [facility] Prior to 09/25/2024 Address [address] [place] [address] Care Team Providers Care Spare Hand Carding Name Role Phone Светлана Pena APRN Primary Care Provider Abdirizak Boone DPM Unavailable [phone] Reason for Visit * Reason Onset Date Comments Faxed Order 09/13/2020 [facility] (Order # [id number]) Encounter Details Date Type Department Care Team Description 09/13/2020 Telephone Adult Medicine [facility] [address] [place] [address] Светлана Pena APRN Faxed Order ([facility] (Order # [id number])) Social History Tobacco Use Types Packs/Day Years [...] Never 01/24/2023 How often do you attend islam or church serv ices? Not asked Do you belong to any clubs o r organizations such as islam groups, unions, fraternal or athletic groups, or [...] have Coronavirus / COVID-19? No / Unsure 09/13/2020 3:00 PM EDT documented as of this encounter Miscellaneous Notes * Telephone Encounter - Sadia Porter - 09/13/2020 9:38 AM EDT Orders from [employer] Sign, date, return to Светлана dodge. documented in this encounter Plan of Treatment Not on file documented as of this encounter Visit Diagnoses Not on filedocumented in this encounter Care Teams Spare Hand Carding Relationship Specialty Start Date End Date Светлана Pena APRN PCP - General Internal Medicine 07/01/20 07/03/23 Abdirizak Zepeda DPM [address] [place] [address] Podiatry 01/24/23 documented as of this encounter
--- OUTSIDE RECORDS SUMMARY | 2025-11-03 21:34 | XMS_ITS | Encounter Summary ---
Author Organization [employer] [facility] Prior to 09/25/2024 Address [address] [place] [address] Care Team Providers Care Sheet Metal Smith Name Role Phone Светлана Pena APRN Primary Care Provider Abdirizak Boone DPM Unavailable [phone] Reason for Visit * Reason Onset Date Comments Faxed Order 01/05/2022 [employer] [facility] [id number] Encounter Details Date Type Department Care Team Description 01/05/2022 Telephone Adult Medicine [facility] [address] [place] [address] Светлана Pena APRN Faxed Order ([employer] [facility] [id number]) Social History Tobacco Use Types Packs/Day Years [...] Never 01/24/2023 How often do you attend moravian or denominational serv ices? Not asked Do you belong to any clubs o r organizations such as moravian groups, unions, fraternal or athletic groups, or [...] place to sleep or slept in a half-way (including now)? No 01/24/2023 Sex Assigned at Date Recorded Not on file documented as of this encounter Miscellaneous Notes * Telephone Encounter - Sandra Herminio - 01/05/2022 10:54 AM EST Placed in doctors bin: [employer] [place] [employer] [id number] Please Review, Sign & Fax when completed. documented in this encounter Plan of Treatment Not on file documented as of this encounter Visit Diagnoses Not on filedocumented in this encounter Care Teams Sheet Metal Smith Relationship Specialty Start Date End Date Светлана Pena APRN PCP - General Internal Medicine 07/01/20 07/03/23 Abdirizak Zepeda DPM [address] [place] [address] Podiatry 01/24/23 documented as of this encounter
--- OUTSIDE RECORDS SUMMARY | 2025-11-03 21:34 | XMS_ITS | Encounter Summary ---
Author Organization [employer] [facility] Prior to 09/25/2024 Address [address] [place] [address] Care Team Providers Care Bundle Collector Name Role Phone Светлана Pena APRN Primary Care Provider Abdirizak Boone DPM Unavailable [phone] Reason for Visit * Reason Onset Date Comments Faxed Order 12/29/2021 [facility] Order#[id number] Encounter Details Date Type Department Care Team Description 12/29/2021 Telephone Adult Medicine [facility] [address] [place] [address] Светлана Pena APRN Faxed Order ([facility] Order#[id number]) Social History Tobacco Use Types Packs/Day Years [...] Never 01/24/2023 How often do you attend yazdanism or moravian serv ices? Not asked Do you belong to any clubs o r organizations such as yazdanism groups, unions, fraternal or athletic groups, or [...] place to sleep or slept in a custodial (including now)? No 01/24/2023 Sex Assigned at Date Recorded Not on file documented as of this encounter Miscellaneous Notes * Telephone Encounter - Lyndsey Agrawal - 12/29/2021 10:12 AM EST Faxed order received by [place] placed in providers bin for signature, fax back to [phone] documented in this encounter Plan of Treatment Not on file documented as of this encounter Visit Diagnoses Not on filedocumented in this encounter Care Teams Bundle Collector Relationship Specialty Start Date End Date Светлана Pena APRN PCP - General Internal Medicine 07/01/20 07/03/23 Abdirizak Zepeda DPM [address] [place] [address] Podiatry 01/24/23 documented as of this encounter
--- OUTSIDE RECORDS SUMMARY | 2025-11-03 21:34 | XMS_ITS | Encounter Summary ---
Author Organization [employer] [facility] Prior to 09/25/2024 Address [address] [place] [address] Care Team Providers Care Reducing Salon Attendant Name Role Phone Светлана Pena APRN Primary Care Provider Abdirizak Boone DPM Unavailable [phone] Reason for Visit * Reason Onset Date Comments Faxed Order 02/14/2022 [employer] Encounter Details Date Type Department Care Team Description 02/14/2022 Telephone Adult Medicine [facility] [address] [place] [address] Светлана Pena APRN Faxed Order ([employer]) Social History Tobacco Use Types Packs/Day Years [...] Never 01/24/2023 How often do you attend hinduism or adventist serv ices? Not asked Do you belong to any clubs o r organizations such as hinduism groups, unions, fraternal or athletic groups, or [...] place to sleep or slept in a correction (including now)? No 01/24/2023 Sex Assigned at Date Recorded Not on file documented as of this encounter Miscellaneous Notes * Telephone Encounter - Sandra Durham - 02/14/2022 1:04 PM EDT Placed in doctors bin: [employer] Please Review, Sign & Fax when completed. documented in this encounter Plan of Treatment Not on file documented as of this encounter Visit Diagnoses Not on filedocumented in this encounter Care Teams Reducing Salon Attendant Relationship Specialty Start Date End Date Светлаан Pena APRN PCP - General Internal Medicine 07/01/20 07/03/23 Abdirizak Zepeda DPM [address] [place] [address] Podiatry 01/24/23 documented as of this encounter
--- OUTSIDE RECORDS SUMMARY | 2025-11-03 21:34 | XMS_ITS | Encounter Summary ---
Author Organization [employer] [facility] Prior to 09/25/2024 Address [address] [place] [address] Care Team Providers Care Outdoor Adventure Instructor Name Role Phone Светлана Pena APRN Primary Care Provider Abdirizak Boone DPM Unavailable [phone] Reason for Visit * Reason Onset Date Comments Prior Authorization 09/13/2020 Encounter Details Date Type Department Care Team Description 09/13/[address] [facility] [address] [place] [address] Светлана Pena APRN Prior Authorization Social History Tobacco Use Types Packs/Day Years [...] Never 01/24/2023 How often do you attend cheondoism or uatsdin serv ices? Not asked Do you belong to any clubs o r organizations such as cheondoism groups, unions, fraternal or athletic groups, or [...] place to sleep or slept in a fdc (including now)? No 01/24/2023 Sex Assigned at Date Recorded Not on file COVID-19 Exposure Response Date Recorded In the last month, have you been in contact with someone who was confirmed or suspected to have Coronavirus / COVID-19? No / Unsure 09/13/2020 3:00 PM EDT documented as of this encounter Miscellaneous Notes * Telephone Encounter - Caitie Winchester M.A. - 09/27/2020 11:54 AM EST Tried to call home number and it is not in service. * Telephone Encounter - Светлана Pena APRN - 09/27/2020 11:31 AM EST Noted, please advise patient she will need to purchase medication otc * Telephone Encounter - Mandy Jacobson M.A. - 09/27/2020 11:27 AM EST Received denial from [employer] for the miralax Any medication that can be purchased otc is excluded for coverage by medicare [place] reply back to p [phone] Prior Auth pool Mandy Jacobson M.A. Regional Prior Authorizations Ext [phone] Fax: [phone] [place] p [phone] Prior Auth mark * Telephone Encounter - Mandy Jacobson M.A. - 09/14/2020 11:19 AM EDT Prior auth done via covermeds for miralax Dx constipation * Telephone Encounter - Lyndsey Nghia - 09/13/2020 3:21 PM EDT Prior Authorization for Medication-do not complete and send this encounter unless you have the fax from the pharmacy. Is this a Cover My Meds request: [place] of Medication polyethylene glycol (MIRALAX) 17 g packet Dose of Medication 17gm What is the RX # from the faxed refill? [id number] How does patient take this med? Take 1 Packet by mouth daily What Pharmacy did the fax come from: [facility] fax #: [phone] [employer] Information from fax: What Prescription Plan does the patient have? NA BIN/PCN if applicable: JUSTIN Cardholder ID:[id number] Person Code: NA Relationship Code: NA Help desk phone: [phone] documented in this encounter Plan of Treatment Not on file documented as of this encounter Visit Diagnoses Not on filedocumented in this encounter Care Teams Outdoor Adventure Instructor Relationship Specialty Start Date End Date Светлана Pena APRN PCP - General Internal Medicine 07/01/20 07/03/23 Abdirizak Zepeda DPM [address] [address] Podiatry 01/24/23 documented as of this encounter
--- OUTSIDE RECORDS SUMMARY | 2025-11-03 21:34 | XMS_ITS | Encounter Summary ---
Author Organization [employer] [facility] Prior to 09/25/2024 Address [address] [place] [address] Care Team Providers Care Telegraphic Typewriter Mechanic Name Role Phone Светлана Pena APRN Primary Care Provider Abdirizak Boone DPM Unavailable Reason for Visit * Reason Onset Date Comments VNA Call 09/22/2020 Encounter Details Date Type Department Care Team Description 09/22/2020 Telephone Adult Medicine [facility] [address] [place] [address] Светлана Pena APRN VNA Call Social History Tobacco Use Types Packs/Day Years [...] Never 01/24/2023 How often do you attend congregation or nondenominational serv ices? Not asked Do you belong to any clubs o r organizations such as congregation groups, unions, fraternal or athletic groups, or [...] place to sleep or slept in a nursing home (including now)? No 01/24/2023 Sex Assigned at Date Recorded Not on file COVID-19 Exposure Response Date Recorded In the last month, have you been in contact with someone who was confirmed or suspected to have Coronavirus / COVID-19? No / Unsure 09/13/2020 3:00 PM EDT documented as of this encounter Miscellaneous Notes * Telephone Encounter - Светлана Pena APRN - 09/22/2020 4:39 PM EDT Orders signed for alcohol swabs * Telephone Encounter - Aundrea Bolaños L.P.N. - 09/22/2020 3:21 PM EDT Tracy states pt requested alcohol wipes prescribed for doing her blood sugars twice daily.. rx sent for signature. Pt daughter reported to nurse (pt has dementia) that pt has c/o back and hip pain a few times recently. Denies injury, abd pain, cp, sob. Daughter feels it is arthritis and agrees to give tylenol fordiscomfort. Agree to call if symptoms change or worsen. * Telephone Encounter - Abdirizak Flynn - 09/22/2020 3:06 PM EDT [facility]NA CALL Which [facility] office is calling? [facility] Full name of caller: Tracy The caller is A nurse Is the caller at the patients home?: NO Reason for call: a script was suppose to pharmacy for alcohol wipes but pharmacy does not have script. Patient would also like some medication for her back pain Does caller need an urgent call back? YES Was CONTACT Telephone # obtained above?: YES Fax #: documented in this encounter Plan of Treatment Not on file documented as of this encounter Visit Diagnoses Not on filedocumented in this encounter Care Teams Telegraphic Typewriter Mechanic Relationship Specialty Start Date End Date Светлана Pena APRN PCP - General Internal Medicine 07/01/20 07/03/23 Abdirizak Zepeda DPM [address] [place] [address] Podiatry 01/24/23 documented as of this encounter
--- OUTSIDE RECORDS SUMMARY | 2025-11-03 21:34 | XMS_ITS | Encounter Summary ---
Author Organization [employer] [facility] Prior to 09/25/2024 Address [address] [place] [address] Care Team Providers Care Transcriber Name Role Phone Akira Mlies MD Primary Care Provider Светлана Sanford APRN Primary Care Provider UnaAbdirizak Lennon DPM Unavailable [phone] Encounter Details Date Type Department Care Team Description 12/14/2015 Business Doc Medical Records [address] [place] [id number] Abstract, Provider Social History Tobacco Use Types [...] Never 01/24/2023 How often do you attend sikh or pentecostal serv ices? Not asked Do you belong to any clubs o r organizations such as sikh groups, unions, fraternal or athletic groups, or [...] on filedocumented in this encounter Care Teams Transcriber Relationship Specialty Start Date End Date Akira Miles MD PCP - General Internal Medicine 02/29/12 06/30/20 Светлана Pena APRN PCP - General Internal Medicine 07/01/20 07/03/23 Abdirizak Zepeda DPM [address] [place] [address] Podiatry 01/24/23 documented as of this encounter
--- OUTSIDE RECORDS SUMMARY | 2025-11-03 21:34 | XMS_ITS | Encounter Summary ---
Author Organization [employer] [facility] Prior to 09/25/2024 Address [address] [place] [address] Care Team Providers Care Instrument Panel Assembler Name Role Phone Akira Miles MD Primary Care Provider Светлана Sanford APRN Primary Care Provider UnaAbdirizak Lennon DPM Unavailable [phone] Encounter Details Date Type Department Care Team Description 11/30/2014 Business Doc Medical Records [address] [place] [address] Abstract, Provider Social History Tobacco Use Types [...] Never 01/24/2023 How often do you attend advent or zoroastrianism serv ices? Not asked Do you belong to any clubs o r organizations such as advent groups, unions, fraternal or athletic groups, or [...] place to sleep or slept in a [place] [facility] [place] facility (including now)? No 01/24/2023 Sex Assigned at Date Recorded Not on file documented as of this encounter Plan of Treatment Not on file documented as of this encounter Visit Diagnoses Not on filedocumented in this encounter Care Teams Instrument Panel Assembler Relationship Specialty Start Date End Date Akira Miles MD PCP - General Internal Medicine 02/29/12 06/30/20 Светлана Pena APRN PCP - General Internal Medicine 07/01/20 07/03/23 Abdirizak Zepeda DPM [address] [place] [address] Podiatry 01/24/23 documented as of this encounter
--- OUTSIDE RECORDS SUMMARY | 2025-11-03 21:34 | XMS_ITS | Encounter Summary ---
Author Organization [facility] Prior to 09/25/2024 Address [address] [place] [address] Care Team Providers Care Acls Specialist Name Role Phone Светлана Pena APRN Primary Care Provider Abdirizak Boone DPM Unavailable [phone] Reason for Visit * Reason Comments E-prescribe Rx Request Encounter Details Date Type Department Care Team Description 06/26/2022 Refill Adult Medicine [address] [address] Tracy Galarza APRN [address] [place] [address] E-prescribe Rx Request Social History Tobacco Use Types Packs/Day Years [...] Never 01/24/2023 How often do you attend jew or mu-ism serv ices? Not asked Do you belong to any clubs o r organizations such as jew groups, unions, fraternal or athletic groups, or [...] Telephone Encounter - Radha Rueda M.A. - 06/26/2022 3:28 PM EDT Date of last office visit was 05/08/22. Pended appt for 09/07/22 Lab Results Component Value Date NA 135 05/08/2022 K 4.2 05/08/2022 CO2 27 05/08/2022 CL 101 05/08/2022 BUN 15 05/08/2022 CREAT 1.08 05/08/2022 GLU 301 05/08/2022 CA 9.7 05/08/2022 GFR 49 05/08/2022 * Telephone Encounter - Sandra Durham - 06/26/2022 11:49 AM EDT Patient would like script to be: E-PRESCRIBED/FAXED TO PHARMACY WHEN WAS THE PATIENT'S LAST APPOINTMENT IN ADULT MEDICINE? 05/08/22 WHEN WAS THE LAST TIME THE PATIENT SAW THEIR PCP? 11/29/21 Does patient have an upcoming appointment? Yes 09/07/22 (THE MEDICATION REQUESTED IS ON THE MED LIST ABOVE) All of the medications requested were on the CURRENT MEDS list Did you check the Pharmacy information above?: YES Patient wants: 30 -day supply Is this a mail order prescription request ? NO If the refill is from a FAXED refill request what is the RX # listed on the fax? N/A Patients current insurance carrier is: Payor: MEDICARE-[employer] / Plan: MEDICARE[employer] / Product Type: MEDICARE [id number] documented in this encounter Plan of Treatment Not on file documented as of this encounter Visit Diagnoses Diagnosis Essential hypertension Unspecified essential hypertension documented in this encounter Care Teams Acls Specialist Relationship Specialty Start Date End Date Светлана Pena APRN PCP - General Internal Medicine 07/01/20 07/03/23 Abdirizak Zepeda DPM [address] [place] [address] Podiatry 01/24/23 documented as of this encounter
--- OUTSIDE RECORDS SUMMARY | 2025-11-03 21:34 | XMS_ITS | Encounter Summary ---
Author Organization [email or web address] [facility] Prior to 09/25/2024 Address [address] [place] [address] Care Team Providers Care Product Managent Intern Name Role Phone Akira Miles MD Primary Care Provider Светлана Sanford APRN Primary Care Provider Unav Abdirizak Shelton DPM Unavailable [phone] Encounter Details Date Type Department Care Team Description 11/28/2019 Hospital Medical Records [address] [place] [address] Margarita Rice NP Social History Tobacco Use Types Packs/Day Years [...] How often do you attend faith or synagogue serv ices? Not asked Do you belong [...] on filedocumented in this encounter Care Teams Product Managent Intern Relationship Specialty Start Date End Date Akira Miles MD PCP - General Internal Medicine 02/29/12 06/30/20 Светлана Pena APRN PCP - General Internal Medicine 07/01/20 07/03/23 Abdirizak Zepeda DPM [address] [place] [address] Podiatry 01/24/23 documented as of this encounter
--- OUTSIDE RECORDS SUMMARY | 2025-11-03 21:35 | XMS_ITS | Encounter Summary ---
Author Organization [employer] [facility] Prior to 09/25/2024 Address [address] [place] [address] Care Team Providers Care Compliance Auditor Name Role Phone Светлана Pena APRN Primary Care Provider Abdirizak Boone DPM Unavailable [phone] Reason for Visit * Reason Onset Date Comments Faxed Order 12/14/2021 [facility] Encounter Details Date Type Department Care Team Description 12/14/2021 Telephone Adult Medicine [facility] [address] [place] [address] Светлана Pena APRN Faxed Order ([facility]) Social History Tobacco Use Types Packs/Day Years [...] Never 01/24/2023 How often do you attend evangelical or bahai serv ices? Not asked Do you belong to any clubs o r organizations such as evangelical groups, unions, fraternal or athletic groups, or [...] encounter Miscellaneous Notes * Telephone Encounter - Delicia Ramos - 12/14/2021 12:[address] in Doctor Bin :[facility] Order#[id number] Please Sign,Fax when Completed documented in this encounter Plan of Treatment Not on file documented as of this encounter Visit Diagnoses Not on filedocumented in this encounter Care Teams Compliance Auditor Relationship Specialty Start Date End Date Светлана Pena APRN PCP - General Internal Medicine 07/01/20 07/03/23 Abdirizak Zepeda DPM [address] [place] [address] Podiatry 01/24/23 documented as of this encounter
--- OUTSIDE RECORDS SUMMARY | 2025-11-03 21:35 | XMS_ITS | Encounter Summary ---
Author Organization [facility] Prior to 09/25/2024 Address [address] [place] [address] Care Team Providers Care Designer Writer Name Role Phone Akira Miles MD Primary Care Provider Светлана Sanford APRN Primary Care Provider Unav Abdirizak Shelton DPM Unavailable [phone] Encounter Details Date Type Department Care Team Description 11/21/2019 Hospital Medical Records [address] [place] [address] [place] Social History Tobacco Use Types Packs/Day Years [...] Never 01/24/2023 How often do you attend yarsani or orthodoxy serv ices? Not asked Do you belong to any clubs o r organizations such as yarsani groups, unions, fraternal or athletic groups, or [...] on filedocumented in this encounter Care Teams Designer Writer Relationship Specialty Start Date End Date Akira Miles MD PCP - General Internal Medicine 02/29/12 06/30/20 Светлана Pena APRN PCP - General Internal Medicine 07/01/20 07/03/23 Abdirizak Zepeda DPM [address] [place] [address] Podiatry 01/24/23 documented as of this encounter
--- OUTSIDE RECORDS SUMMARY | 2025-11-03 21:35 | XMS_ITS | Encounter Summary ---
Author Organization [facility] Prior to 09/25/2024 Address [address] [place] [address] Care Team Providers Care Piped Buttonhole Machine Operator Name Role Phone Akira Miles MD Primary Care Provider Светлана Sanford APRN Primary Care Provider Unav ailable Abdirizak Zepeda DPM Unavailable [phone] Reason for Visit * Reason Onset Date Comments Faxed Order 09/30/2019 [facility] Encounter Details Date Type Department Care Team Description 09/30/2019 Telephone Adult Medicine [facility] [address] [place] [address] Akira Miles MD Faxed Order ([facility]) Social History Tobacco Use Types Packs/Day Years [...] Never 01/24/2023 How often do you attend zoroastrian or amish serv ices? Not asked Do you belong to any clubs o r organizations such as zoroastrian groups, unions, fraternal or athletic groups, or [...] encounter Miscellaneous Notes * Telephone Encounter - Isabel Bonilla - 09/30/2019 12:44 PM EST Home Health Certificate and order to be reviewed, signed and faxed back to [facility] at [phone], placed in PCP bin for signature documented in this encounter Plan of Treatment Not on file documented as of this encounter Visit Diagnoses Not on filedocumented in this encounter Care Teams Piped Buttonhole Machine Operator Relationship Specialty Start Date End Date Akira Miles MD PCP - General Internal Medicine 02/29/12 06/30/20 Светлана Pena APRN PCP - General Internal Medicine 07/01/20 07/03/23 Abdirizak Zepeda DPM [address] [place] [address] Podiatry 01/24/23 documented as of this encounter
--- OUTSIDE RECORDS SUMMARY | 2025-11-03 21:35 | XMS_ITS | Encounter Summary ---
Author Organization [facility] Prior to 09/25/2024 Address [address] [place] [address] Care Team Providers Care Public Services Assistant Name Role Phone Akira Miles MD Primary Care Provider Светлана Sanford APRN Primary Care Provider Unav Abdirizak Shelton DPM Unavailable [phone] Encounter Details Date Type Department Care Team Description 11/23/2019 Hospital Medical Records [address] [place] [address] Denys Campos MD Social History Tobacco Use Types Packs/Day [...] Never 01/24/2023 How often do you attend worship or taoism serv ices? Not asked Do you belong to any clubs o r organizations such as worship groups, unions, fraternal or athletic groups, or [...] on filedocumented in this encounter Care Teams Public Services Assistant Relationship Specialty Start Date End Date Akira Miles MD PCP - General Internal Medicine 02/29/12 06/30/20 Светлана Pena APRN PCP - General Internal Medicine 07/01/20 07/03/23 Abdirizak Zepeda DPM [address] [place] [address] Podiatry 01/24/23 documented as of this encounter
--- OUTSIDE RECORDS SUMMARY | 2025-11-03 21:35 | XMS_ITS | Encounter Summary ---
Author Organization [employer] [facility] Prior to 09/25/2024 Address [address] [place] [address] Care Team Providers Care Rotor Assembler Name Role Phone Светлана Pena ESTEBAN Primary Care Provider Abdirizak Boone DPM Unavailable [phone] Reason for Visit * Reason Comments E-prescribe Rx Request Encounter Details Date Type Department Care Team Description 10/07/2021 Refill Adult Medicine [address] [address] Caitie Hair PA-C E-prescribe Rx Request Social History Tobacco Use [...] Never 01/24/2023 How often do you attend druze or bahai serv ices? Not asked Do you belong to any clubs o r organizations such as druze groups, unions, fraternal or athletic groups, or [...] Telephone Encounter - Radha Rueda M.A. - 10/09/2021 9:45 AM EST Date of last office visit was 07/24/21. Lab Results Component Value Date CHOL 212 07/18/2021 LDL 118 07/18/2021 HDL 59 07/18/2021 TRIG 177 07/18/2021 SGOT 20 04/03/2018 SGPT 16 04/03/2018 * Telephone Encounter - Sandra Durham - 10/09/2021 9:44 AM EST Patient would like script to be: E-PRESCRIBED/FAXED TO PHARMACY WHEN WAS THE PATIENT'S LAST APPOINTMENT IN ADULT MEDICINE? 07/24/21 WHEN WAS THE LAST TIME THE PATIENT SAW THEIR PCP? 02/24/21 Does patient have an upcoming appointment? (THE MEDICATION REQUESTED IS ON THE MED LIST ABOVE) All of the medications requested were on the CURRENT MEDS list Did you check the Pharmacy information above?: YES Patient wants: 90 -day supply Is this a mail order prescription request ? NO If the refill is from a FAXED refill request what is the RX # listed on the fax? N/A Patients current insurance carrier is: [place] / [place] / Product Type: MEDICARE [id number] documented in this encounter Plan of Treatment Not on file documented as of this encounter Visit Diagnoses Not on filedocumented in this encounter Care Teams Rotor Assembler Relationship Specialty Start Date End Date Светлана Pena APRN PCP - General Internal Medicine 07/01/20 07/03/23 Abdirizak Zepeda DPM [address] [place] [address] Podiatry 01/24/23 documented as of this encounter
--- OUTSIDE RECORDS SUMMARY | 2025-11-03 21:35 | XMS_ITS | Encounter Summary ---
Author Organization [employer] [facility] Prior to 09/25/2024 Address [address] [place] [address] Care Team Providers Care Lap Winder Name Role Phone Akira Miles MD Primary Care Provider Светлана Sanford APRN Primary Care Provider Unav Abdirizak Shelton DPM Unavailable [phone] Encounter Details Date Type Department Care Team Description 09/07/2019 Release of Information Medical Records [address] [place] [id number] Abstract, Provider Social History Tobacco Use Types [...] How often do you attend islam or quaker serv ices? Not asked Do you belong [...] on filedocumented in this encounter Care Teams Lap Winder Relationship Specialty Start Date End Date Akira Miles MD PCP - General Internal Medicine 02/29/12 06/30/20 Светлана Pena APRN PCP - General Internal Medicine 07/01/20 07/03/23 Abdirizak Zepeda DPM [address] [place] [address] Podiatry 01/24/23 documented as of this encounter
--- OUTSIDE RECORDS SUMMARY | 2025-11-03 21:35 | XMS_ITS | Encounter Summary ---
Author Organization [facility] [facility] Prior to 09/25/2024 Address [address] [place] [address] Care Team Providers Care Fur Matcher Name Role Phone Jean Светлана ESTEBAN Primary Care Provider Abdirizak Boone DPM Unavailable [phone] Encounter Details Date Type Department Care Team Description 04/12/2021 Activities Director Report Medical Records [address] [place] [address] Raeann Vergara MD Social History Tobacco Use [...] Never 01/24/2023 How often do you attend confucianist or nondenominational serv ices? Not asked Do you belong to any clubs o r organizations such as confucianist groups, unions, fraternal or athletic groups, or [...] have Coronavirus / COVID-19? No / Unsure 03/28/2021 2:05 PM EDT documented as of this encounter Plan of Treatment Not on file documented as of this encounter Visit Diagnoses Not on filedocumented in this encounter Care Teams Fur Matcher Relationship Specialty Start Date End Date Светлана Pena APRN PCP - General Internal Medicine 07/01/20 07/03/23 Abdirizak Zepeda DPM [address] [place] [address] Podiatry 01/24/23 documented as of this encounter
--- OUTSIDE RECORDS SUMMARY | 2025-11-03 21:35 | XMS_ITS | Encounter Summary ---
Author Organization [facility] [facility] Prior to 09/25/2024 Address [address] [place] [address] Care Team Providers Care Lead Portfolio Manager Name Role Phone Akira Miles MD Primary Care Provider Светлана Sanford APRN Primary Care Provider Unav Abdirizak Shelton DPM Unavailable [phone] Encounter Details Date Type Department Care Team Description 07/08/2013 Transfer Records Medical Records [address] [place] [address] Abstract, Provider Social History Tobacco Use Types [...] How often do you attend congregation or anglican serv ices? Not asked Do you belong [...] place to sleep or slept in a prison (including now)? No 01/24/2023 Sex Assigned at Date Recorded Not on file documented as of this encounter Plan of Treatment Not on file documented as of this encounter Visit Diagnoses Not on filedocumented in this encounter Care Teams Lead Portfolio Manager Relationship Specialty Start Date End Date Akira Miles MD PCP - General Internal Medicine 02/29/12 06/30/20 Светлана Pena APRN PCP - General Internal Medicine 07/01/20 07/03/23 Abdirizak Zepeda DPM [address] [place] [address] Podiatry 01/24/23 documented as of this encounter
--- OUTSIDE RECORDS SUMMARY | 2025-11-03 21:35 | XMS_ITS | Encounter Summary ---
Author Organization [employer] [facility] Prior to 09/25/2024 Address [address] [place] [address] Care Team Providers Care Insurance Office Manager Name Role Phone Светлана Pena APRN Primary Care Provider Abdirizak Boone DPM Unavailable Reason for Visit * Reason Onset Date Comments refill request 11/14/2021 Encounter Details Date Type Department Care Team Description 11/14/2021 Refill Adult Medicine [address] [address] Светлана Pena APRN refill request Social History [...] Never 01/24/2023 How often do you attend sabianism or yazdanism serv ices? Not asked Do you belong to any clubs o r organizations such as sabianism groups, unions, fraternal or athletic groups, or [...] place to sleep or slept in a fpc (including now)? No 01/24/2023 Sex Assigned at Date Recorded Not on file documented as of this encounter Miscellaneous Notes * Telephone Encounter - Светлана Pena APRN - 11/14/2021 4:28 PM EST Amantadine has previously been refilled by my colleagues but really should be coming from neurology- anti parkinson's medication * Telephone Encounter - Radha Rueda M.A. - 11/14/2021 2:30 PM EST Date of last office visit was 07/24/21. Lab Results Component Value Date NA 138 07/18/2021 K 4.0 07/18/2021 CO2 28 07/18/2021 CL 101 07/18/2021 BUN 13 07/18/2021 CREAT 0.89 07/18/2021 GLU 270 07/18/2021 CA 9.3 07/18/2021 GFR > 60 07/18/2021 * Telephone Encounter - Ethan Daniel - 11/14/2021 12:17 PM EST Patient would like script to be: E-PRESCRIBED/FAXED TO PHARMACY ?? WHEN WAS THE PATIENT'S LAST APPOINTMENT IN ADULT MEDICINE? 07/24/21 ?? WHEN WAS THE LAST TIME THE PATIENT SAW THEIR PCP? 02/24/21 ?? Does patient have an upcoming appointment? ?? (THE MEDICATION REQUESTED IS ON THE MED LIST ABOVE) All of the medications requested were on the CURRENT MEDS list ?? Did you check the Pharmacy information above?: YES ?? Patient wants: 90 -day supply ?? Is this a mail order prescription request ? NO ?? If the refill is from a FAXED refill request what is the RX # listed on the fax? N/A ?? Patients current insurance carrier is: [place] / Plan: MEDICARE[employer] / Product Type: MEDICARE [id number] ?? documented in this encounter Plan of Treatment Not on file documented as of this encounter Visit Diagnoses Diagnosis Essential hypertension Unspecified essential hypertension documented in this encounter Care Teams Insurance Office Manager Relationship Specialty Start Date End Date Светлана Pena APRN PCP - General Internal Medicine 07/01/20 07/03/23 Abdirizak Zepeda DPM [address] [address] Podiatry 01/24/23 documented as of this encounter
--- OUTSIDE RECORDS SUMMARY | 2025-11-03 21:35 | XMS_ITS | Encounter Summary ---
Author Organization [employer] [facility] Prior to 09/25/2024 Address [address] [place] [address] Care Team Providers Care Brazing Machine Setter Name Role Phone Akira Miles MD Primary Care Provider Unavail Светлана Orantes APRN Primary Care Provider Unav ailable Abdirizak Zepeda DPM Unavailable [phone] Encounter Details Date Type Department Care Team Description 08/07/2019 Orders Only Adult Medicine [facility] [address] [place] [address] Akira Miles MD Special screening for malignant neoplasms, colon Social History Tobacco Use Types Packs/Day Years [...] Never 01/24/2023 How often do you attend muslim or latter day serv ices? Not asked Do you belong to any clubs o r organizations such as muslim groups, unions, fraternal or athletic groups, or [...] Procedure Name Priority Date/Time Associated Diagnosis Comments CHG BLOOD OCCULT FECAL HGB DETER IA QUAL FECES 1-3 Routine 08/07/2019 9:54 AM EDT Special screening for malignant neoplasms, colon documented in this encounter Results * BLOOD OCCULT QUAL FECAL HEMGLBN (08/07/2019 9:54 AM EDT) OCCULT BLOOD, STOOL negative INTERNAL CONTROL VALID yes Stool 08/07/2019 9:54 AM EDT Tracy Galarza APRN LAB documented in this encounter Visit Diagnoses Diagnosis Special screening for malignant neoplasms, colon documented in this encounter Care Teams Brazing Machine Setter Relationship Specialty Start Date End Date Akira Miles MD PCP - General Internal Medicine 02/29/12 06/30/20 Светлана Pena APRN PCP - General Internal Medicine 07/01/20 07/03/23 Abdirizak Zepeda DPM [address] [place] [address] Podiatry 01/24/23 documented as of this encounter
--- OUTSIDE RECORDS SUMMARY | 2025-11-03 21:35 | XMS_ITS | Clinical Summary ---
Author Organization [facility] Address [address] [place] [address] Care Team Providers Care Border Patrol Officer Name Role Phone JeanСветлана NENITA Primary Care Provider [phone] Surgical History Surgery Date Site/Laterality Comments SECTION PROCEDURE: [place] DELIVERY ONLY HYSTERECTOMY PROCEDURE: HISTORICAL HYSTERECTOMY Medical History Medical History Date Comments Cerebrovascular disease, unspecified DX:Cerebrovascular disease, unspecified; COMMENT: cva X2 Generalized osteoarthrosis, unspecified site DX:Generalized osteoarthrosi s, unspecified site CKD (chronic kidney disease) stage 3, GFR 30-59 ml/min ([facility] V24, [facility] V28) 07/09/2018 DX:CKD (chronic kidney disea se) stage 3, GFR 30-59 ml/min ([facility]); COMMENT: Stage III DM (diabetes mellitus), type 2 with renal complications ([facility] V24, [facility] V28) 10/27/2020 DX:DM (diabetes mellitus), t ype 2 with renal complications ([facility]) Atrial fibrillation ([facility] V24, [facility] V28) 03/02/2021 DX:Atrial fibrillation (HCC) Osteoporosis [...] on file Sexual Orientation Not on file Last Filed Vital Signs Vital Sign Reading [...] (HGBA1C) 11/06/2022 Depression Screening 11/25/2024 COVID-19 Vaccine (1 - 2024-2 6 season) 2025 Influenza Vaccine (#1) 2025 9, [...] Documents on File Type Date Recorded Patient Form Presser Expl anation Health Care Decision (hx) 12/17/2019 AD CHU DIRECTIVE Health Care Decision (hx) 12/17/2019 AD CHU DIRECTIVE Health Care Decision (hx) 12/11/2019 AD CHU DIRECTIVE Health Care Decision (hx) 12/11/2019 AD CHU DIRECTIVE Health Care Decision (hx) 12/11/2019 AD CHU DIRECTIVE Health Care Decision (hx) 12/11/2019 AD CHU DIRECTIVE Health Care Decision (hx) 12/11/2019 AD CHU DIRECTIVE Care Teams Border Patrol Officer Relationship Specialty Start Date End Date Светлана Pena NP PCP - General Internal Medicine 07/01/20
== END 2025-11-03 16:09 | disposition home or self-care (01) ==
LOC: HO.HSM 13:52
PROVIDERS: PCP Internal Medicine; Visit Provider Registered Nurse
DX: G30.9 Alzheimer's disease, unspecified (principal); F02.80 Dementia in other diseases classified elsewhere, unspecified severity, without behavioral disturbance, psychotic disturbance, mood disturbance, and anxiety; G40.409 Other generalized epilepsy and epileptic syndromes, not intractable, without status epilepticus; I61.9 Nontraumatic intracerebral hemorrhage, unspecified; F01.50 Vascular dementia, unspecified severity, without behavioral disturbance, psychotic disturbance, mood disturbance, and anxiety; R47.01 Aphasia
CPT/HCPCS: 99213

== ENCOUNTER → 2025-11-03 13:52 | Outpatient (BNVA) | payer MEDICARE, MEDICAID, SELFPAY | PROVIDERS: PCP Internal Medicine; Visit Provider Registered Nurse | DX: G30.9 Alzheimer's disease, unspecified (principal); F02.80 Dementia in other diseases classified elsewhere, unspecified severity, without behavioral disturbance, psychotic disturbance, mood disturbance, and anxiety; G40.909 Epilepsy, unspecified, not intractable, without status epilepticus; I61.9 Nontraumatic intracerebral hemorrhage, unspecified; F01.50 Vascular dementia, unspecified severity, without behavioral disturbance, psychotic disturbance, mood disturbance, and anxiety; R47.01 Aphasia | CPT/HCPCS: 99212 ==